=== PATIENT | male | born 1975 | race Caucasian/White ===

== ENCOUNTER 2020-02-27 05:54 | Inpatient (IN) ==
[2020-02-27] MEDS ORDERED: Aspirin 81 MG TAB.CHEW PO ONE (06:02)
[2020-02-27 06:16] LABS: Basophils # 0.1 K/mcL (0.0-0.2); Basophils % 0.8 %; Eosinophils # 0.3 K/mcL (0.0-0.6); Eosinophils % 3.7 %; Hematocrit 43.5 % (37.5-50.1); Hemoglobin 15.2 g/dL (12.9-16.9); Immature Granulocytes % 0.2 % (0-4); Lymphocytes # 2.3 K/mcL (0.6-4.6); Lymphocytes % 27.9 %; Mean Corpuscular HGB Conc 34.9 g/dL (31.6-35.5); Mean Corpuscular Volume 91.6 fL (83.0-100.0); Mean Platelet Volume 11.6 fL (9.4-12.4); Monocytes # 0.8 K/mcL (0.0-1.3); Neutrophils # 4.9 K/mcL (1.6-8.9); Platelet Count 203 K/mcL (140-400); Red Blood Count 4.75 M/mcL (4.19-5.50); Red Cell Distribution Width 11.9 % (11.5-14.5); Segmented Neutrophils % 58.4 %; White Blood Count 8.3 K/mcL (4.3-11.1)
[2020-02-27 06:23] LABS: INR 0.9; Prothrombin Time 10.5 Seconds (9.4-12.1)
[2020-02-27 06:25] LABS: Activated Partial Thrombo Time 32.6 Seconds (26.0-36.0)
[2020-02-27] MEDS ORDERED: Isovue-370 500 ML BOTTLE IVP ONE (06:25)
[2020-02-27 06:38] LABS: Alanine Aminotransferase 39 Units/L (7-52); Albumin 4.2 g/dL (3.5-5.7); Albumin/Globulin Ratio 1.8 (1.1-2.2); Alkaline Phosphatase 97 Units/L (34-104); Aspartate Amino Transferase 37 Units/L (13-39); BUN/Creatinine Ratio 18 (6-26); Bilirubin,Direct 0.1 mg/dL (0.0-0.2); Bilirubin,Indirect 0.5 mg/dL (0.0-1.0); Bilirubin,Total 0.6 mg/dL (0.3-1.0); Blood Urea Nitrogen 21 mg/dL (6-20); Calcium 9.5 mg/dL (8.6-10.3); Carbon Dioxide 25 mEq/L (23-29); Chloride 105 mEq/L (98-107); Globulin 2.3 g/dL (2.4-3.5); Glucose 108 mg/dL (70-105); Lipase 200 Units/L (11-82); Osmolality,Calculated 292 (280-300); Potassium 3.7 mEq/L (3.5-5.1); Sodium 139 mEq/L (136-145); Total Protein 6.5 g/dL (6.4-8.9); Troponin I 7.38 ng/mL (< 0.04); eGFR For African Americans > 60 (> 60); eGFR For Non-African Americans > 60 (> 60)
[2020-02-27] MEDS ORDERED: *HR* Labetalol 20 MG/4 ML SYRINGE IVP ONE (06:45)
[2020-02-27] MEDS ORDERED: *HR* Heparin 5,000 UNIT/ML VIAL IVP PRN (08:05)
[2020-02-27] MEDS ORDERED: Heparin 25,000 UNIT/250 ML D5W 25,000 UNIT/250 ML IV.SOLN IVC SCH (08:15)
[2020-02-27] MEDS ORDERED: Naloxone 0.4 MG/ML INJ IVP PRN (08:41)
[2020-02-27] MEDS ORDERED: Ondansetron 4 MG/2 ML VIAL IVP PRN (08:41)
[2020-02-27] MEDS ORDERED: lisinopriL 5 MG TABLET PO SCH (09:00)
[2020-02-27] MEDS ORDERED: *HR* Ticagrelor 90 MG TABLET PO STA (09:09)
[2020-02-27] MEDS ORDERED: lisinopriL 20 MG TABLET PO STA (09:09)
[2020-02-27 10:24] LABS: Estimated Average Glucose 105 mg/dl; Hemoglobin A1C 5.3 %
[2020-02-27 10:50] LABS: Chol/HDL Ratio 6.5 (0-4.9); Cholesterol 196 mg/dL (< 200); HDL Cholesterol 30 mg/dL (40-59); LDL Cholesterol,Calculated 107 mg/dL (< 100); Triglycerides 295 mg/dL (< 150)
[2020-02-27] MEDS: niCARdipine 20 MG/200 ML MLS IVC SCH (14:51)
[2020-02-27] MEDS ORDERED: ISOVUE-370 200 ML INFUS..BTL ONE ×2 (14:52→16:17)
[2020-02-27] MEDS ORDERED: Nitroglycerin 1,000 MCG/10 ML VIAL IV ONE (14:52)
[2020-02-27] MEDS ORDERED: *HR* Heparin 10,000 UNIT/10 ML VIAL ONE (14:52)
[2020-02-27] MEDS ORDERED: Heparin 1,000 UNITS/500 mL 500 ML ONE (14:52)
[2020-02-27] MEDS ORDERED: 0.9 % Sodium Chloride 2,000 ML ONE (14:52)
[2020-02-27] MEDS ORDERED: *HR* FentaNYL (PF) 100 MCG/2 ML VIAL ONE (15:35)
[2020-02-27] MEDS ORDERED: *HR* Midazolam HCl 2 MG/2 ML VIAL ONE ×2 (15:35→15:47)
[2020-02-27] MEDS ORDERED: *HR* Bivalirudin 250 MG VIAL IVC ONE (16:05)
[2020-02-27] MEDS ORDERED: Nitroglycerin 0.4 MG TAB.SUBL SL PRN (16:57)
[2020-02-27] MEDS ORDERED: carvediloL 6.25 MG TABLET PO SCH (17:00)
[2020-02-27] MEDS ORDERED: 0.9 % Sodium Chloride 1,000 ML IVC SCH (17:00)
[2020-02-27] MEDS: carvediloL 25 MG TABLET PO SCH (23:21)
[2020-02-28 01:10] LABS: Basophils # 0.1 K/mcL (0.0-0.2); Basophils % 0.7 %; Eosinophils # 0.2 K/mcL (0.0-0.6); Eosinophils % 2.6 %; Hematocrit 39.8 % (37.5-50.1); Hemoglobin 13.8 g/dL (12.9-16.9); Immature Granulocytes % 0.4 % (0-4); Lymphocytes # 1.7 K/mcL (0.6-4.6); Lymphocytes % 20.5 %; Mean Corpuscular HGB Conc 34.7 g/dL (31.6-35.5); Mean Corpuscular Hemoglobin 31.7 pg (28.0-33.3); Mean Corpuscular Volume 91.5 fL (83.0-100.0); Mean Platelet Volume 11.7 fL (9.4-12.4); Monocytes # 0.7 K/mcL (0.0-1.3); Monocytes % 8.5 %; Neutrophils # 5.4 K/mcL (1.6-8.9); Platelet Count 198 K/mcL (140-400); Red Blood Count 4.35 M/mcL (4.19-5.50); Red Cell Distribution Width 12.1 % (11.5-14.5); Segmented Neutrophils % 67.3 %; White Blood Count 8.1 K/mcL (4.3-11.1)
[2020-02-28 01:46] LABS: BUN/Creatinine Ratio 19 (6-26); Blood Urea Nitrogen 21 mg/dL (6-20); Calcium 8.5 mg/dL (8.6-10.3); Carbon Dioxide 23 mEq/L (23-29); Chloride 106 mEq/L (98-107); Glucose 104 mg/dL (70-105); Osmolality,Calculated 289 (280-300); Potassium 3.9 mEq/L (3.5-5.1); Sodium 138 mEq/L (136-145); eGFR For African Americans > 60 (> 60); eGFR For Non-African Americans > 60 (> 60)
[2020-02-28] MEDS ORDERED: *HR* Labetalol 20 MG/4 ML SYRINGE IVP ONE (05:50)
[2020-02-28] MEDS: *HR* Ticagrelor 90 MG TABLET PO SCH ×2 (07:22→19:37)
[2020-02-28] MEDS: carvediloL 25 MG TABLET PO SCH ×2 (07:22→17:56)
[2020-02-28] MEDS: Aspirin 81 MG TAB.CHEW PO SCH (07:23)
[2020-02-28] MEDS: niCARdipine 20 MG/200 ML MLS IVC SCH ×2 (08:31→16:06)
[2020-02-28] MEDS ORDERED: amLODIPine 5 MG TABLET PO SCH (09:00)
[2020-02-28] MEDS ORDERED: lisinopriL 20 MG TABLET PO SCH (09:00)
[2020-02-28] MEDS: Nicotine 14 MG PATCH.TD24 TD SCH (16:11)
[2020-02-29] MEDS ORDERED: *HR* Labetalol 20 MG/4 ML SYRINGE IVP ONE (03:10)
[2020-02-29] MEDS: carvediloL 25 MG TABLET PO SCH (07:41)
[2020-02-29] MEDS: Nicotine 14 MG PATCH.TD24 TD SCH (07:41)
[2020-02-29] MEDS: Aspirin 81 MG TAB.CHEW PO SCH (07:41)
[2020-02-29] MEDS: *HR* Ticagrelor 90 MG TABLET PO SCH (07:41)
[2020-02-29] MEDS ORDERED: amLODIPine 5 MG TABLET PO SCH (09:00)
[2020-02-29 11:37] VITALS: BP 129/86
== END 2020-02-29 14:21 | disposition home or self-care (01) | DRG 174 ==
LOC: EMEROOARM 05:54 → 2NNU 05:54 → SUATTDRO 08:42 → 2NNU 10:51
PROVIDERS: ADMIT Internal Medicine; ATTEND Student in an Organized Health Care Education/Training Program